=== PATIENT | female | born 2000 | race Caucasian/White ===

== ENCOUNTER 2022-07-20 14:48 | Emergency (ER) | payer OTHER, SELFPAY ==
[2022-07-20] VITALS (13 sets, daily range): BP systolic 109–127; BP diastolic 75–98; PULSE 72–88; RESP 12–18; TEMP 36.2; O2SAT 100
--- NOTE | ~2022-07-20 | CT_ITS ---
EXAMINATION: CT abdomen pelvis w con DATE: 07/20/2022 18:42 INDICATION: n/v/d, epigastric pain TECHNIQUE: Computed tomography (CT) of the abdomen and pelvis was performed with 100 mL Omnipaque-350 intravenous contrast. Automated exposure control and iterative reconstruction technique were employe d. The dose-length product was 220.59 mGy-cm. COMPARISON: None. FINDINGS: Lower thorax: Unremarkable Liver: Normal. Biliary/Gallbladder: Gallbladder is normal. No bile duct dilation. Pancreas: No mass or duct dilation. Spleen: Normal. Adrenals:No mass. Kidneys: No mass, stone, or hydronephrosis. GI tract: Mild distal esophageal and gastric wall edema. No small or large bowel dilation. Normal silvino endix. Mesentery/Peritoneum: No ascites, mass, or free air. Retroperitoneum: No mass. Pelvis: Pelvic organs are within normal limits. Soft Tissues: Soft tissues and body wall unremarkable. Bones: No acute osseous finding. IMPRESSION: Mild esophagitis/gastritis. Otherwise, no acute abdominopelvic process detected. Reviewed, dictated and finalized at location K. [facility]TER IMPRESSION: Mild esophagitis/gastritis. Otherwise, no acute abdominopelvic process detected .
[2022-07-20 17:06] LABS: Basophils Absolute Auto 0.1 K/mm3 (0.0-0.1); Basophils Percent Auto 0.4 % (0.2-1.2); Eosinophils Percent Auto 0.1 % (0-4.4); Hematocrit 46.2 % (37.0-47.0); Hemoglobin 15.9 g/dL (12.0-15.0); Immature Granulocyte Absolute 0.11 K/mm3 (0.00-0.031); Immature Granulocyte Percent A 0.7 % (0-0.5); Lymphocytes Absolute Auto 2.54 K/mm3 (0.9-3.2); Lymphocytes Percent Auto 15.1 % (18.3-44.2); Mean Corpuscular HGB Conc 34.4 g/dl (32-36); Mean Corpuscular Hemoglobin 29.5 pg (26-34); Mean Corpuscular Volume 85.7 fl (80-100); Mean Platelet Volume 11.5 fl (7.4-10.4); Monocytes Absolute Auto 1.3 K/mm3 (0.1-0.6); Monocytes Percent Auto 7.6 % (2.6-8.5); Neutrophils Absolute Auto 12.8 K/mm3 (1.3-6.7); Neutrophils Percent Auto 76.1 % (45.5-73.1); Platelet Count Result 328 k/mm3 (150-375); Red Blood Count 5.39 M/mm3 (4.2-5.4); Red Cell Distribution Width 12.6 % (11.5-14.5); White Blood Count 16.8 K/mm3 (4.5-10.0)
[2022-07-20 17:20] LABS: Alanine Aminotransferase 22 U/L (6-35); Albumin Level 5.3 g/dL (3.5-5.1); Alkaline Phosphatase 97 U/L (38-126); Anion Gap 15 mmol/L (8-16); Aspartate Amino Transferase 30 U/L (14-36); Bilirubin,Total 0.8 mg/dL (0.2-1.3); Blood Urea Nitrogen 16 mg/dL (7-17); Calcium 9.9 mg/dL (8.4-10.2); Carbon Dioxide 22 mmol/L (22-30); Chloride 100 mmol/L (98-107); Estimated Glomerular Filt Rate > 60; Glucose 108 mg/dL (65-110); Lipase 58 U/L (23-300); Potassium 3.6 mmol/L (3.4-5.0); Sodium 137 mmol/L (137-145)
--- NOTE | 2022-07-20 18:03 | ED.GENADULT ---
HPI - General Adult General Chief complaint: Nausea/Vomiting/Diarrhea Stated complaint: nausea/vomiting Time Seen by Provider: 07/20/22 17:54 History of Present Illness HPI narrative: 22-year-old female here for evaluation of nausea, vomiting and diarrhea for the past 3 days. Patient states that she has been unable to keep any food or fluids down. Symptoms started after eating dinner and her brother is sick with similar symptoms. Patient decided to come to the ED today after she developed a severe, generalized abdominal pain. Attempted Pepto-Bismol without relief. No fevers, chills, chest pain or shortness of breath. No history of abdominal surgeries. Denies chance of . Related Data Allergies Allergy/AdvReac Type Severity Reaction Status Date / Time No Known Allergies Allergy Verified 07/20/22 15:32 Review of Systems Review of Systems: Gen: Denies fevers or chills Eyes: Denies eye pain or visual change ENT: Denies congestion Respiratory: Denies shortness of breath or cough CV: Denies chest pain or palpitations GI: Reports abdominal pain, nausea, vomiting and diarrhea. : denies burning, urgency, frequency or hematuria Musculoskeletal: Denies back pain or muscle pain Neuro: Denies numbness, tingling, weakness or focal weakness Skin: Denies rash Except as documented, all other systems reviewed and negative Exam Narrative: APPEARANCE: Well appearing, no pain in distress, well-nourished. Head: Normocephalic and atraumatic. EYES: PERRLA/EOMI, conjunctivae clear NOSE: No nasal drainage EARS: External ear normal in appearance THROAT: Oropharynx is clear. Mucous membranes are moist. NECK: Supple. No adenopathy, no masses. RESPIRATORY: Airway patent, respirations nonlabored. Clear to auscultation bilaterally, no rales, rhonchi, wheezing. CARDIOVASCULAR: Regular rate and rhythm without murmurs, rubs, or gallops. ABDOMINAL: Tender to palpation in epigastric region. Normoactive bowel sounds. Soft, nondistended. No rebound tenderness or guarding. MUSCULOSKELETAL: Extremities are warm and well-perfused. Moves all extremities well. No edema. NEURO: Normal speech. No focal neurologic deficits. SKIN: Skin is warm and dry. No rashes. PSYCHIATRIC: Normal affect/mood. Course Vital Signs Vital signs: Vital Signs Temperature 97.1 F L 07/20/22 15:38 Pulse Rate 75 07/20/22 15:38 Respiratory Rate 18 07/20/22 15:38 Blood Pressure 120/85 07/20/22 15:38 Pulse Oximetry 100 07/20/22 15:38 Temperature 97.1 F L 07/20/22 15:38 Pulse Rate 72 07/20/22 19:31 Respiratory Rate 14 07/20/22 19:01 Blood Pressure 119/83 07/20/22 19:31 Pulse Oximetry 100 07/20/22 19:45 Medical Decision Making MDM Narrative Medical decision making narrative: 22-year-old female here for evaluation of nausea, vomiting and diarrhea over the past 3 days. Positive sick contacts, patient's brother is sick with similar symptoms after eating the same meal. Patient is nontoxic-appearing and has normal vital signs. She does have significant epigastric tenderness on exam, given that she also has a white count of 16.[address] abdomen pelvis was ordered which showed no acute process other than gastritis/esophagitis. Her lipase is normal. She is not having symptoms concerning for UTI; her UA is likely contaminated with squamous epithelial cells so will not treat at this time. Patient was given 2 L of fluids, Zofran and Pepcid in the ED with improvement of her symptoms. Likely gastroenteritis. She was able to tolerate p.o. she will be discharged home with a prescription for Zofran and to follow-up with her primary care doctor. Vital Signs Vital Signs: Vital Signs Temperature 97.1 F L 07/20/22 15:38 Pulse Rate 75 07/20/22 15:38 Respiratory Rate 18 07/20/22 15:38 Blood Pressure 120/85 07/20/22 15:38 Pulse Oximetry 100 07/20/22 15:38 Temperature 97.1 F L 07/20/22 15:38 Pulse Rate 72 07/20/22 19:31 Respir
[2022-07-20] MEDS: ONDANSETRON INJ 4 MG/2 ML VIAL IV PUSH (18:08)
[2022-07-20] MEDS: FAMOTIDINE 20 MG/2 ML VIAL IV PUSH (18:10)
[2022-07-20] MEDS: LACTATED RINGERS 1,000 ML 999 ML IV CONT ×2 (18:10→19:57)
[2022-07-20 18:30] LABS: Appearance Urine Slightly Cloudy (Clear); Bilirubin Urine 1+ (Negative); Blood Urine Negative (Negative); Color Urine Yellow (Yellow); Glucose Urine UA Negative (Negative); Ketones Urine 3+ mg/dL (Negative); Leukocyte Esterase Ur 1+ LEU/UL (Negative); Nitrate Urine Negative (Negative); Protein Urine 1+ mg/dL (Negative); Urobilinogen Urine 0.2 mg/dL (<2.0); pH Urine 5.5 (5.0-9.0)
[2022-07-20 18:35] LABS: Bacteria Urine Trace /hpf; Mucus Urine Few /lpf; Squamous Epithelial Cell Urine Many /hpf (Few); WBC Urine 31-50 /hpf
[2022-07-20 18:39] LABS: Add Urine Microscopic? YES
[2022-07-20] MEDS: MAG HYDROX/AL HYDROX/SIMETH 30 ML UDC PO (19:57)
== END 2022-07-20 20:37 | disposition home or self-care (01) ==
PROVIDERS: Emergency Medicine; Emergency Provider Physician Assistant; PCP Nurse Practitioner Family
DX: K52.9 Noninfective gastroenteritis and colitis, unspecified (principal)
CPT/HCPCS: 36415; 74177; 80053; 81001; 81025; 83690; 85025; 87086; 96361; 96374; 96375; 99284; A9270; J2405; J7120; Q9967